=== PATIENT | female | born 1945 | race Caucasian/White ===

== ENCOUNTER 2018-11-06 09:25 | Emergency (ER) | payer MEDICARE ==
[2018-11-06] MEDS: Sodium Chloride 0.9% 10 ML Syringe FLUSH PRN ×3 (10:05→13:00)
[2018-11-06] MEDS ORDERED: Sodium Chloride 0.9% 1,000 ML IV ONE ×4 (10:10→12:50)
--- NOTE | 2018-11-06 10:17 | EDM.PDOC ---
ED HPI GENERAL MEDICAL PROBLEM - General Chief Complaint: Abdominal Pain Stated Complaint: abdominal pain Time Seen by Provider: 11/06/18 09:45 Source of Information: Reports: Patient History Limitations: Reports: Other (patient is a poor historian) - History of Present Illness INITIAL COMMENTS - FREE TEXT/NARRATIVE: 73-year-old female (who is a poor historian) presents from [facility] via ambulance and reports developing generalized abdominal pain Saturday which has gradually worsened over time. She reports that she fell Saturday night and hit her head and buttock. She did not lose consciousness. She did not have any weakness or dizziness per her reports. She has had decreased by mouth intake and that seems to make her abdominal pain worse. She has had no nausea or vomiting. She has had diarrhea and has had to stop loose stools last night. No blood in her stools.she rates her pain as a 9/10. She reports that it is a crampy pain that is all over. It is worse with palpation and with movement. She' s had no cough. No chest pain. There are no other associated signs or symptoms. There are no other modifying factors. Onset: Other (Saturday) Duration: Getting Worse Location: Reports: Abdomen Quality: Reports: Other (cramping) Severity: Severe Improves with: Reports: None Worsens with: Reports: Other (palpation), Movement Context: Reports: Other (as above) Associated Symptoms: Reports: Loss of Appetite, Weakness Treatments [employer]: Reports: Other (see below) (nothing) Abdominal Pain Score (Numeric/FACES): 9 - Related Data Allergies Allergy/AdvReac Type Severity Reaction Status Date / Time Penicillins Allergy Rash Verified 11/06/18 10:57 rosiglitazone maleate Allergy Rash Verified 11/06/18 10:57 [From Avandia] Home Meds: Home Meds Aspirin [Ecotrin] 81 mg PO DAILY 10/09/13 [History] Calcium Carbonate/Vitamin D3 [Calcium 500 + Vit D 400] 1 each PO TIDMEALS [History] Furosemide [Lasix] 40 mg PO BID 10/09/13 [History] Potassium Chloride 10 meq PO DAILY 10/09/13 [History] rOPINIRole HCl [Requip] 1 mg PO BID 10/09/13 [History] Cetirizine [ZyrTEC] 10 mg PO DAILY 06/20/18 [History] Clotrimazole [Clotrimazole 1%] 1 applic TOP DAILY 06/20/18 [History] Codeine Phosphate/Guaifenesin [Guaifen-Codeine 100-10 mg/5 ml] 5 ml PO TID PRN 06/20/18 [History] Gabapentin [Neurontin] 100 mg PO 08,12 06/20/18 [History] Gabapentin [Neurontin] 300 mg PO BEDTIME 06/20/18 [History] Insulin Aspart [NovoLOG] 5 unit SQ ,06/20/18 [History] Levothyroxine 150 mcg PO DAILY 06/20/18 [History] Lisinopril 5 mg PO DAILY 06/20/18 [History] Ozempic 1 mg SQ WEEKLY 06/20/18 [History] Rosuvastatin [Crestor] 20 mg PO DAILY 06/20/18 [History] Sertraline HCl 100 mg PO DAILY 06/20/18 [History] amLODIPine Besylate [Amlodipine Besylate] 10 mg PO DAILY 06/20/18 [History] Alosetron HCl 0.5 mg PO BID 11/06/18 [History] DULoxetine [Cymbalta] 20 mg PO DAILY 11/06/18 [History] Insulin Aspart [NovoLOG] 0 unit ASDIRECTED PRN 11/06/18 [History] Insulin Aspart [NovoLOG] 4 unit SQ 0800 11/06/18 [History] Insulin Glarg,Human.Rec.Analog [Lantus Solostar] 8 unit SUBCUT 18 11/06/18 [ History] Insulin Glarg,Human.Rec.Analog [Lantus Solostar] 16 unit SQ 08 11/06/18 [History ] Lactobacilium Fermentum Pcc 1 cap PO DAILY 11/06/18 [History] Ondansetron HCl [Ondansetron] 4 mg PO Q6H PRN 11/06/18 [History] oxyCODONE 5 mg PO Q4H PRN 11/06/18 [History] tiZANidine [Zanaflex] 4 mg PO BID 11/06/18 [History] Past Medical History HEENT History: Reports: Cataract Cardiovascular History: Reports: Hypertension Respiratory History: Reports: Sleep Apnea Other Respiratory History: cpap, not here Gastrointestinal History: Reports: Cholelithiasis Genitourinary History: Reports: Other (See Below) Other Genitourinary History: surgery on kidneys 39 years ago from exposure to radiation Musculoskeletal History: Reports: Fibromyalgia, Osteoarthritis Neurological History: Reports: CVA Other Neuro History: 2002, permanent blindness R eye Psychiatric History: Reports: Anxiety Endocrine/Metabolic History: Reports: Diabetes, Type II, IDDM Other Endocrine/Metabolic History: 20 years Oncologic (Cancer) History: Reports: Uterine Dermatologic History: Reports: Other (See Below) Other Dermatologic History: weeping lower legs, wrapped, Dr Campoverde is seeing her - Infectious Disease History Infectious Disease History: Reports: Chicken Pox, Measles - Past Surgical History HEENT Surgical History: Reports: Cataract Surgery Other HEENT Surgeries/Procedures: bilateral, 2 years ago GI Surgical History: Reports: Appendectomy, Cholecystectomy Other GI Surgeries/Procedures: 20 yearsm ago Female Surgical History: Reports: Hysterectomy Other Female Surgeries/Procedures: 42 years ago Endocrine Surgical History: Reports: None Neurological Surgical History: Reports: None Musculoskeletal Surgical History: Reports: Hip Replacement, Knee Replacement, Other (See Below) Other Musculoskeletal Surgeries/Procedures:: all done in [place],25 years ago Oncologic Surgical History: Reports: Other (See Below) Other Oncologic Surgeries/Procedures: hysterectomy, 39 years ago Social & Family History - Tobacco Use Smoking Status *Q: Unknown Ever Smoked (nonsmoker) Second Hand Smoke Exposure: No - Caffeine Use Caffeine Use: Reports: None - Alcohol Use Alcohol Use History: No - Living Situation & Occupation Living situation: Reports: Assisted Living Occupation: Retired Social History Comment: lives in [facility] assisted living. ED ROS GENERAL - Review of Systems Review Of Systems: See Below Constitutional: Reports: Decreased Appetite HEENT: Reports: Other (dry mouth; no sore throat.) Respiratory: Reports: No Symptoms Cardiovascular: Reports: No Symptoms Endocrine: Reports: No Symptoms GI/Abdominal: Reports: Abdominal Pain, Diarrhea : Reports: No Symptoms Musculoskeletal: Reports: No Symptoms Skin: Reports: No Symptoms Neurological: Reports: No Symptoms Hematologic/Lymphatic: Reports: No Symptoms Immunologic: Reports: No Symptoms ED EXAM, GI/ABD - Physical Exam Exam: See Below Exam Limited By: No Limitations General Appearance: Alert, Moderate Distress, Obese Eyes: Bilateral: Normal Appearance, EOMI Ears: Normal External Exam, Hearing Loss Nose: Normal Inspection, Normal Mucosa Throat/Mouth: Normal Voice, No Airway Compromise, Other (dry lips and dry mucous membranes) Head: Atraumatic, Normocephalic Neck: Normal Inspection, Supple, Non-Tender, Full Range of Motion Respiratory/Chest: No Respiratory Distress, Lungs Clear, Normal Breath Sounds, No Accessory Muscle Use Cardiovascular: Normal Peripheral Pulses, Regular Rate, Rhythm, No JVD, Systolic Murmur GI/Abdominal Exam: Distended, Tender (exquisitely tender throughout with light palpation), Abnormal Bowel Sounds (quiet bowel sounds) Extremities: Normal Inspection, Normal Range of Motion, Non-Tender, No Pedal Edema, Normal Capillary Refill Neurological: Alert, Oriented, CN II-XII Intact, No Motor/Sensory Deficits Skin Exam: Dry, Intact, Pallor Lymphatic: No Adenopathy ED CENTRAL LINE INSERTION - Central Line Insertion Central Line Indication: IV access, medication administration Site: internal jugular (R) Prep: CDC/MBT Guidelines, Sterile Drapes, Chlorhexidine Lumen: triple Gauge: 20Fr Local Anesthesia - Lidocaine (Xylocaine): 1% Plain Local Anesthetic Volume: 2cc Ultrasound guided: No Guidewire and dilator removed intact: Yes Micropuncture kit used: No Complications: No Secured with suture: Yes Post placement confirmation: CXR, all ports aspirated, all ports flushed CXR post-procedure: no pneumothorax Dressing applied: by nurse, by provider, op-site dressing Central line comment: 20 [place] triple-lumen central catheter placed in the right IJ using sterile technique with cap, mask and gown with sterile prep and drape of the area. Placement confirmed via chest x-ray with the tip in the distal superior vena cava area. Patient tolerated the procedure well without any apparent complications. EKG INTERPRETATION EKG Date: 11/06/18 Time: 10:25 Rhythm: NSR [place]: LAD-Left [place] Deviation P-Wave: Present QRS: Normal ST-T: Other (nnonspecific ST-T changes) QT: Prolonged Comparison: No Change EKG Interpretation Comments: normal sinus rhythm with a rate of 85. There was left axis deviation.there are nonspecific ST-T changes throughout. There is a prolonged QT interval.There are no changes from EKG performed on 06/20/2018. Course - Vital Signs Last Recorded V/S: Last Vital Signs Temp 36.7 C 11/06/18 13:10 Pulse 81 11/06/18 13:10 Resp 28 H 11/06/18 13:10 BP 93/39 L 11/06/18 13:10 Pulse Ox 92 L 11/06/18 13:10 - Orders/Labs/Meds Orders: Active Orders 24 hr Category Date Time Status Bladder Scan [RC] ASDIRECTED Care 11/06/18 10:06 Active Blood Glucose Check, Bedside [] ONETIME Care 11/06/18 09:38 Active Insert Urinary Catheter [OM.PC] Q24H Care 11/06/18 10:15 Ordered Oxygen Therapy Adult [Oxygen Therapy, ED] [] Care 11/06/18 10:38 Active ASDIRECTED Urinary Catheter Assessment [] QSHIFT Care 11/06/18 10:08 Active NPO Now [Nothing per Oral Now Diet] [DIET] Diet 11/06/18 Lunch Ordered Abdomen Pelvis wo Cont [CT] Stat Exams 11/06/18 10:38 Taken CXR [Chest 1V Frontal] [CR] Stat Exams 11/06/18 10:09 Taken Chest 1V Frontal [CR] Stat Exams 11/06/18 13:07 Taken CULTURE BLOOD [BC] Urgent Lab 11/06/18 10:35 Received CULTURE BLOOD [BC] Urgent Lab 11/06/18 11:05 Received CULTURE URINE [RM] Stat Lab 11/06/18 10:21 Received Norepinephrine [Levophed] 4 mg Med 11/06/18 12:52 Active Dextrose 5% in Water 246 ml IV TITRATE Blood Culture x2 Reflex Set [OM.PC] Urgent Oth 11/06/18 10:05 Ordered EKG 12 Lead [EK] Routine Ther 11/06/18 10:05 Ordered Medication Orders Norepinephrine Bitartrate 4 mg (/ Dextrose/Water) 250 mls @ 7.5 mls/hr IV TITRATE LALO; Protocol Last Titration: 11/06/18 13:20 Dose: 6 mcg/min, 22.5 mls/hr Titration: 11/06/18 13:15 Dose: 5 mcg/min, 18.75 mls/hr Titration: 11/06/18 13:03 Dose: 4 mcg/min, 15 mls/hr Titration: 11/06/18 12:58 Dose: 3 mcg/min, 11.25 mls/hr Admin: 11/06/18 12:52 Dose: 2 mcg/min, 7.5 mls/hr Labs: Laboratory Tests 11/06/18 11/06/18 11/06/18 Range/Units 10:21 10:35 10:35 WBC 7.5 (4.5-12.0) X10-3/uL RBC 4.08 (3.23-5.20) x10(6)uL Hgb 13.4 (11.5-15.5) g/dL Hct 40.5 (30.0-51.3) % MCV 99.3 H (80-96) fL MCH 32.7 (27.7-33.6) pg MCHC 33.0 (32.2-35.4) g/dL RDW 13.9 (11.5-15.5) % Plt Count 234 (125-369) X10(3)uL MPV 7.7 (7.4-10.4) fL Add Manual Diff Yes Neutrophils % (Manual) 71 (46-82) % Band Neutrophils % 6 (0-6) % Lymphocytes % (Manual) 15 (13-37) % Monocytes % (Manual) 8 (4-12) % PT 12.3 H (8.7-11.1) INR 1.27 H (0.89-1.13) Sodium (135-145) mmol/L Potassium (3.5-5.3) mmol/L Chloride (100-110) mmol/L Carbon Dioxide (21-32) mmol/L BUN (7-18) mg/dL Creatinine (0.55-1.02) mg/dL Est Cr Clr Drug Dosing mL/min Estimated GFR (MDRD) (>60) BUN/Creatinine Ratio (9-20) Glucose (80-116) mg/dL Lactic Acid (0.4-2.2) mmol/L Calcium (8.6-10.2) mg/dL Total Bilirubin (0.1-1.3) mg/dL AST (5-25) IU/L ALT (12-36) U/L Alkaline Phosphatase (56-112) IU/L Troponin I (<0.017-0.056) ng/mL C-Reactive Protein (0.5-0.9) mg/dL Total Protein (6.0-8.0) g/dL Albumin (3.2-4.6) g/dL Globulin g/dL Albumin/Globulin Ratio Amylase (25-115) U/L Urine Color Yellow (YELLOW) Urine Appearance Slightly cloudy (CLEAR) Urine pH 5.0 (5.0-6.5) Ur Specific [place] 1.015 (1.010-1.025) Urine Protein Negative (NEGATIVE) mg/dL Urine Glucose (UA) Normal (NORMAL) mg/dL Urine Ketones Negative (NEGATIVE) mg/dL Urine Occult Blood Negative (NEGATIVE) Urine Nitrite Negative (NEGATIVE) Urine Bilirubin Small H (NEGATIVE) Urine Urobilinogen Normal (NEGATIVE) mg/dL Ur Leukocyte Esterase Moderate H (NEGATIVE) Urine RBC 0-5 (0-5) Urine WBC 5-10 H (0-5) Ur Squamous Epith Cells Few H (NS,R,O) Amorphous Sediment Few Urine Bacteria Few H (NS) Blood Type Gel Antibody Screen 11/06/18 11/06/18 11/06/18 Range/Units 11:05 11:05 11:05 WBC (4.5-12.0) X10-3/uL RBC (3.23-5.20) x10(6)uL Hgb (11.5-15.5) g/dL Hct (30.0-51.3) % MCV (80-96) fL MCH (27.7-33.6) pg MCHC (32.2-35.4) g/dL RDW (11.5-15.5) % Plt Count (125-369) X10(3)uL MPV (7.4-10.4) fL Add Manual Diff Neutrophils % (Manual) (46-82) % Band Neutrophils % (0-6) % Lymphocytes % (Manual) (13-37) % Monocytes % (Manual) (4-12) % PT (8.7-11.1) INR (0.89-1.13) Sodium 135 (135-145) mmol/L Potassium 3.3 L (3.5-5.3) mmol/L Chloride 95 L (100-110) mmol/L Carbon Dioxide 27 (21-32) mmol/L BUN 27 H (7-18) mg/dL Creatinine 2.0 H* (0.55-1.02) mg/dL Est Cr Clr Drug Dosing 21.63 mL/min Estimated GFR (MDRD) 24 L (>60) BUN/Creatinine Ratio 13.5 (9-20) Glucose 169 H D (80-116) mg/dL Lactic Acid (0.4-2.2) mmol/L Calcium 8.3 L (8.6-10.2) mg/dL Total Bilirubin 1.7 H (0.1-1.3) mg/dL AST 163 H* (5-25) IU/L ALT 81 H (12-36) U/L Alkaline Phosphatase 242 H (56-112) IU/L Troponin I 0.026 (<0.017-0.056) ng/mL C-Reactive Protein (0.5-0.9) mg/dL Total Protein 6.1 (6.0-8.0) g/dL Albumin 2.6 L (3.2-4.6) g/dL Globulin 3.5 g/dL Albumin/Globulin Ratio 0.7 Amylase 5 L (25-115) U/L Urine Color (YELLOW) Urine Appearance (CLEAR) Urine pH (5.0-6.5) Ur Specific [place] (1.010-1.025) Urine Protein (NEGATIVE) mg/dL Urine Glucose (UA) (NORMAL) mg/dL Urine Ketones (NEGATIVE) mg/dL Urine Occult Blood (NEGATIVE) Urine Nitrite (NEGATIVE) Urine Bilirubin (NEGATIVE) Urine Urobilinogen (NEGATIVE) mg/dL Ur Leukocyte Esterase (NEGATIVE) Urine RBC (0-5) Urine WBC (0-5) Ur Squamous Epith Cells (NS,R,O) Amorphous Sediment Urine Bacteria (NS) Blood Type O POSITIVE Gel Antibody Screen Negative 11/06/18 11/06/18 Range/Units 11:05 11:05 WBC (4.5-12.0) X10-3/uL RBC (3.23-5.20) x10(6)uL Hgb (11.5-15.5) g/dL Hct (30.0-51.3) % MCV (80-96) fL MCH (27.7-33.6) pg MCHC (32.2-35.4) g/dL RDW (11.5-15.5) % Plt Count (125-369) X10(3)uL MPV (7.4-10.4) fL Add Manual Diff Neutrophils % (Manual) (46-82) % Band Neutrophils % (0-6) % Lymphocytes % (Manual) (13-37) % Monocytes % (Manual) (4-12) % PT (8.7-11.1) INR (0.89-1.13) Sodium (135-145) mmol/L Potassium (3.5-5.3) mmol/L Chloride (100-110) mmol/L Carbon Dioxide (21-32) mmol/L BUN (7-18) mg/dL Creatinine (0.55-1.02) mg/dL Est Cr Clr Drug Dosing mL/min Estimated GFR (MDRD) (>60) BUN/Creatinine Ratio (9-20) Glucose (80-116) mg/dL Lactic Acid 4.8 H (0.4-2.2) mmol/L Calcium (8.6-10.2) mg/dL Total Bilirubin (0.1-1.3) mg/dL AST (5-25) IU/L ALT (12-36) U/L Alkaline Phosphatase (56-112) IU/L Troponin I (<0.017-0.056) ng/mL C-Reactive Protein 26.3 H* (0.5-0.9) mg/dL Total Protein (6.0-8.0) g/dL Albumin (3.2-4.6) g/dL Globulin g/dL Albumin/Globulin Ratio Amylase (25-115) U/L Urine Color (YELLOW) Urine Appearance (CLEAR) Urine pH (5.0-6.5) Ur Specific [place] (1.010-1.025) Urine Protein (NEGATIVE) mg/dL Urine Glucose (UA) (NORMAL) mg/dL Urine Ketones (NEGATIVE) mg/dL Urine Occult Blood (NEGATIVE) Urine Nitrite (NEGATIVE) Urine Bilirubin (NEGATIVE) Urine Urobilinogen (NEGATIVE) mg/dL Ur Leukocyte Esterase (NEGATIVE) Urine RBC (0-5) Urine WBC (0-5) Ur Squamous Epith Cells (NS,R,O) Amorphous Sediment Urine Bacteria (NS) Blood Type Gel Antibody Screen Meds: Medications Generic Name Dose Route Start Last Admin Trade Name Freq PRN Reason Stop Dose Admin Norepinephrine Bitartrate 4 mg 250 mls @ 7.5 mls/hr 11/06/18 12:52 11/06/18 13:20 / Dextrose/Water IV 6 mcg/min TITRATE LALO 22.5 mls/hr Titration Protocol 2 MCG/MIN Discontinued Medications Generic Name Dose Route Start Last Admin Trade Name Marcus PRN Reason Stop Dose Admin Sodium Chloride 1,000 mls @ 999 mls/hr 11/06/18 10:10 11/06/18 10:10 Normal Saline IV 11/06/18 11:10 999 mls/hr .BOLUS ONE Administration Sodium Chloride 1,000 mls @ 999 mls/hr 11/06/18 11:11 11/06/18 11:13 Normal Saline IV 11/06/18 12:11 999 mls/hr .BOLUS ONE Administration Ertapenem 1 gm/ Sodium 50 mls @ 100 mls/hr 11/06/18 12:12 11/06/18 12:16 Chloride IV 11/06/18 12:41 100 mls/hr ONETIME ONE Administration Sodium Chloride 1,000 mls @ 999 mls/hr 11/06/18 12:16 11/06/18 12:15 Normal Saline IV 11/06/18 13:16 999 mls/hr .BOLUS ONE Administration Sodium Chloride 1,000 mls @ 999 mls/hr 11/06/18 12:50 11/06/18 12:50 Normal Saline IV 11/06/18 13:50 999 mls/hr .BOLUS ONE Administration Morphine Sulfate 2 mg 11/06/18 10:27 11/06/18 10:48 Morphine IVPUSH 11/06/18 10:28 2 mg ONETIME ONE Administration Ondansetron HCl 4 mg 11/06/18 10:27 11/06/18 10:44 Zofran IVPUSH 11/06/18 10:28 4 mg ONETIME ONE Administration - Radiology Interpretation Free Text/Narrative:: portable chest x-ray showed no acute pathology. CT scan of abdomen and pelvis without IV contrast showed free air and mild dilation of small bowel loops with inflammatory changes in this area. She also had colonic fecal retention. There was also some free fluid around the small bowel portable chest x-ray performed after central line placement showed good central line placement with the tip of the triple-lumen in the distal superior vena cava and no evidence of pneumothorax. - Re-Assessments/Exams Free Text/Narrative Re-Assessment/Exam: 11/06/18 10:36: IV has been established. The patient is receiving normal saline as a bolus. Her latest blood pressure is 90 systolic.Lab is attempting to draw blood now. Her EKG is normal. A bladder scan showed 339 mL in her bladder and a Tran catheter is being placed. I have ordered a small dose of pain medication. I will send the patient over for CT scan of her abdomen and pelvis. We will continue fluid resuscitation and careful monitoring. 11/06/18 12:00: discussed the patient with the radiologist at [facility] and patient' sCT scan showed free air consistent with perforated viscus. There was also some small bowel inflammatory changes as well. 11/06/18 12:10: I discussed the patient's case with Dr. Louie, general surgeon at [facility], and he feels the patient will need ICU care which is not available at [facility] and he would recommend transferring the patient to a tertiary care facility with the service and I her specially services available. 11/06/18 12:25: the patient is having ongoing fluid resuscitation with normal saline and her blood pressures are staying in the 80-90 systolic range. Her O2 saturations have dropped into the 80-89% range on 3 L and we have had to go up on her oxygen consistently over time. She continues to have severe abdominal pain but she is maintaining a normal mental status and normal level of responsiveness. The patient has also been given Invanz. I discussed the patient's case initially with Dr. Gamez, general surgeon at [facility] in [place], and he is agreeable to caring for the patient and accepting transfer but wants me to discuss the patient's case with the director human services. I discussed patient's case with Dr. Rocha, director human services at [facility] in [place], and he recommends that the patient have a central line placed and the patient be placed on pressors at this time. 11/06/18 13:40: Central line has been placed. The patient is on a Levophed drip. Her blood pressures are now in the 90-105 systolic range. She is now on high flow oxygen via mask with her O2 saturations in the 98-100% range. Patient 's mentation remained normal.the patient has received a total of 3 L of normal saline fluid resuscitation.Plan for now is that we will maintain the patient on a maintenance rate of fluids and titrate the Levofed for blood pressure of 95- 100 systolic. EMS crew is here at this point and the patient will be transferred via ambulance to [facility]. Departure - Departure Time of Disposition: 13:40 Disposition: DC/Tfer to Acute Hospital 02 Condition: Critical Clinical Impression: Perforated abdominal viscus, Hypoxia Hypotension Qualifiers: Hypotension type: unspecified hypotension type Qualified Code(s): I95.9 - Hypotension, unspecified Sepsis Qualifiers: Sepsis type: sepsis due to unspecified organism Qualified Code(s): A41.9 - Sepsis, unspecified organism - Discharge Information Referrals: PCP,None [Primary Care Provider] - Forms: ED Department Discharge Critical Care Note - Critical Care Note Total Time (mins): 165 Comments: Total critical care time spent with the patient, discussing the patient's case with consultants, arranging transfer of the patient, reviewing laboratory data and x-ray data was 165 minutes. This was devoid of the procedure of placing the central line. - My Orders Last 24 Hours: My Active Orders 11/06/18 09:38 Blood Glucose Check, Bedside [RC] ONETIME 11/06/18 10:05 Blood Culture x2 Reflex Set [OM.PC] Urgent EKG 12 Lead [EK] Routine 11/06/18 10:06 Bladder Scan [RC] ASDIRECTED 11/06/18 10:08 Urinary Catheter Assessment [RC] QSHIFT 11/06/18 10:09 CXR [Chest 1V Frontal] [CR] Stat 11/06/18 10:15 Insert Urinary Catheter [OM.PC] Q24H 11/06/18 10:21 CULTURE URINE [RM] Stat 11/06/18 10:35 CULTURE BLOOD [BC] Urgent 11/06/18 10:38 Oxygen Therapy Adult [Oxygen Therapy, ED] [RC] ASDIRECTED Abdomen Pelvis wo Cont [CT] Stat 11/06/18 11:05 CULTURE BLOOD [BC] Urgent 11/06/18 12:52 Norepinephrine [Levophed] 4 mg Dextrose 5% in Water 246 ml IV TITRATE 11/06/18 13:07 Chest 1V Frontal [CR] Stat 11/06/18 Lunch NPO Now [Nothing per Oral Now Diet] [DIET] - Assessment/Plan Last 24 Hours: My Active Orders 11/06/18 09:38 Blood Glucose Check, Bedside [RC] ONETIME 11/06/18 10:05 Blood Culture x2 Reflex Set [OM.PC] Urgent EKG 12 Lead [EK] Routine 11/06/18 10:06 Bladder Scan [RC] ASDIRECTED 11/06/18 10:08 Urinary Catheter Assessment [RC] QSHIFT 11/06/18 10:09 CXR [Chest 1V Frontal] [CR] Stat 11/06/18 10:15 Insert Urinary Catheter [OM.PC] Q24H 11/06/18 10:21 CULTURE URINE [RM] Stat 11/06/18 10:35 CULTURE BLOOD [BC] Urgent 11/06/18 10:38 Oxygen Therapy Adult [Oxygen Therapy, ED] [RC] ASDIRECTED Abdomen Pelvis wo Cont [CT] Stat 11/06/18 11:05 CULTURE BLOOD [BC] Urgent 11/06/18 12:52 Norepinephrine [Levophed] 4 mg Dextrose 5% in Water 246 ml IV TITRATE 11/06/18 13:07 Chest 1V Frontal [CR] Stat 11/06/18 Lunch NPO Now [Nothing per Oral Now Diet] [DIET]
[2018-11-06] MEDS ORDERED: Morphine 2 MG/ML Syringe IVPUSH ONE (10:27)
[2018-11-06] MEDS ORDERED: Ondansetron 4 MG/2 ML SDV IVPUSH ONE (10:27)
[2018-11-06] MEDS ORDERED: Sodium Chloride 0.9% 10 ML Syringe FLUSH PRN (10:30)
[2018-11-06] MEDS ORDERED: Ertapenem 1 GM in Sodium Chloride 0.9% 50 ML IV ONE (12:12)
[2018-11-06] MEDS ORDERED: Norepinephrine 4 MG in Dextrose 5% in Water 246 ML IV SCH ×2 (12:52)
--- NOTE | 2018-11-07 08:47 | CR ---
INDICATION: Abdominal pain. CHEST: An AP supine portable view of the chest was obtained 11/06/18 at 1007 hours and compared with 06/20/18. Pleural parenchymal changes are suggested at the left lung base, which may be on the basis of pneumonia and pleuritis. The heart is enlarged. The aorta is tortuous with calcification in the arch. Upper lung field pulmonary vasculature is minimally prominent, raising question of a mild degree of CHF. This should be correlated clinically, especially since this is a supine image and likely that the prominence is due to the supine positioning. IMPRESSION: Possible pneumonia and pleuritis at the left lung base in a patient with ASHD. MTDD
--- NOTE | 2018-11-07 08:48 | CR ---
INDICATION: Central line placement. CHEST: A single supine portable view of the chest was obtained 11/06/18 at 1305 hours and compared with 1007 hours on the same date and revealed a central line with its tip at the right atrium - adequate position and alignment suggested. There is continued suspicion of pneumonia and pleuritis at the left lung base in a patient with ASHD and cardiomegaly. Overlying EKG leads are noted. IMPRESSION: Satisfactory position of central line. MTDD
== END 2018-11-06 13:41 ==
LOC: FB.ED 09:25
DX: A41.9 Sepsis, unspecified organism (principal); I95.9 Hypotension, unspecified; K63.1 Perforation of intestine (nontraumatic); E11.9 Type 2 diabetes mellitus without complications; Z88.0 Allergy status to penicillin; Z88.8 Allergy status to other drugs, medicaments and biological substances; Z79.899 Other long term (current) drug therapy; Z79.82 Long term (current) use of aspirin; Z79.4 Long term (current) use of insulin; Z86.73 Personal history of transient ischemic attack (TIA), and cerebral infarction without residual deficits
CPT/HCPCS: 36415; 36556; 51702; 51798; 71045; 74176; 80053; 81001; 82150; 82962; 83605; 84484; 85025; 85610; 86140; 86850; 86900; 86901; 87040; 87086; 87088; 93005; 96361; 96365; 96367; 96375; 99285; 99291; 99292; J1335; J2270; J2405; J7030; J7050; J7060